=== PATIENT | female | born 1985 | race Caucasian/White ===

== ENCOUNTER 2017-10-20 12:37 | Inpatient (IN) | payer OTHER ==
[~2017-10-20] VITALS: Ht 157.5 cm; Wt 100.2 kg
[2017-10-20] MEDS ORDERED: SERT50TA PO (12:45)
[2017-10-20] MEDS ORDERED: TRAZ-213 PO (12:45)
[2017-10-20] MEDS ORDERED: SODIUM CHLORIDE 0.9% 1,000 ML IV ONE (13:19)
[2017-10-20 13:36] LABS: BASOPHILS % 0.5 % (0.0-2.0); EOSINOPHILS % 1.7 % (0.0-5.0); HEMATOCRIT. 38.2 % (36.0-48.0); HEMOGLOBIN. 12.7 g/dL (12.0-16.0); LYMPHOCYTES % 25.8 % (20.0-50.0); MEAN CORPUSCULAR HEMOGLOBIN 27.6 pg (28.0-32.0); MEAN CORPUSCULAR VOLUME 82.6 fL (81.0-99.0); MEAN PLATELET VOLUME 8.6 fl (7.4-10.4); MONOCYTES % 8.8 % (2.0-8.0); NEUTROPHILS % 63.2 % (40.0-76.0); PLATELET 250 x1000/uL (130-400); RED BLOOD CELL COUNT 4.62 mill/uL (4.2-5.4); RED CELL DISTRIBUTION WIDTH 14.7 % (11.6-14.6)
[2017-10-20 13:42] LABS: CHLORIDE 106 mEq/L (98-107)
[2017-10-20 13:44] LABS: INR 1.1; PARTIAL THROMBOPLASTIN TIME 26.4 sec (23.4-31.0); PROTHROMBIN TIME 10.7 sec (9.1-11.1)
[2017-10-20 13:46] LABS: ETHANOL BLOOD < 10 mg/dL
[2017-10-20 13:48] LABS: HCG SCREEN NEGATIVE
[2017-10-20] MEDS ORDERED: MAGNESIUM 2 G PREMIX 50 ML IV ONE (15:15)
[2017-10-20 15:34] LABS: BG BASE EXCESS -2.2 mmol/L (-2.0-2.0); BG CARBOXYHEMOGLOBIN 0.2 % (0.5-1.5); BG DEOXYHEMOGLOBIN 2.7 % (0.0-5.0); BG FRACTION INSPIRED OXYGEN 21; BG HCO3 ACT 23.1 mmol/L (22.0-26.0); BG METHEMOGLOBIN 0.3 % (0.0-1.5); BG OXYGEN SATURATION 97.3 % (92.0-98.5); BG OXYHEMOGLOBIN 96.8 % (94.0-97.0); BG PH 7.359 (7.350-7.450); BG PO2 97.9 mmHg (75.0-100.0); BG SAMPLE SITE LEFT BRACHIAL; BG TOTAL HEMOGLOBIN 12.9 g/dL (12.0-18.0); BG VENT MODE ROOM AIR
[2017-10-20] MEDS: SODIUM CHLORIDE 0.45% 1,000 ML IV SCH (15:44)
[2017-10-20] MEDS ORDERED: DOCUSATE SODIUM 100MG CAPSULE PO PRN (15:45)
[2017-10-20] MEDS ORDERED: GUAIFENESIN 200MG/10ML SUGAR FREE UDC PO PRN (15:45)
[2017-10-20] MEDS ORDERED: CLONIDINE 0.1MG TABLET PO PRN (15:45)
[2017-10-20] MEDS ORDERED: MAGNESIUM SULFATE 2 GM in DEXTROSE 5% WATER 50 ML IV NR (16:00)
[2017-10-20 16:50] LABS: CLARITY URINE CLOUDY (CLEAR); COLOR URINE YELLOW (YELLOW); KETONES URINE NEGATIVE (NEGATIVE); LEUKOCYTE ESTERASE URINE TRACE (NEGATIVE); NITRITE URINE NEGATIVE (NEGATIVE); OCCULT BLOOD URINE 2+ (NEGATIVE); PH URINE 6.5 (4.5-8.0); PROTEIN URINE NEGATIVE (NEGATIVE); SPECIFIC GRAVITY URINE 1.009 (1.005-1.030); UROBILINOGEN URINE 0.2 E.U./dL (0.2-1.0)
[2017-10-20 17:12] LABS: *AMPHETAMINES SCREEN URINE NEGATIVE (NEGATIVE)
[2017-10-20 17:13] LABS: *BARBITURATES SCREEN URINE NEGATIVE (NEGATIVE); *BENZODIAZEPINES SCREEN URINE NEGATIVE (NEGATIVE); *COCAINE SCREEN URINE NEGATIVE (NEGATIVE); METHADONE URINE SCREEN NEGATIVE (NEGATIVE)
[2017-10-20 17:14] LABS: CANNABINOID URINE SCREEN NEGATIVE (NEGATIVE); OPIATES URINE SCREEN NEGATIVE (NEGATIVE); PHENCYCLIDINE URINE SCREEN NEGATIVE (NEGATIVE)
[2017-10-20 20:45] VITALS: BP 106/58
[2017-10-20 21:00] VITALS: BP 97/56
[2017-10-20] MEDS ORDERED: ONDANSETRON 4MG ODT PO PRN (21:00)
[2017-10-20 22:00] VITALS: BP 98/58
[2017-10-21] VITALS (12 sets, daily range): BP systolic 90–129; BP diastolic 44–68
[2017-10-21] MEDS: SODIUM CHLORIDE 0.45% 1,000 ML IV SCH ×2 (05:07→18:51)
[2017-10-21 06:39] LABS: BASOPHILS % 0.4 % (0.0-2.0); EOSINOPHILS % 1.6 % (0.0-5.0); HEMATOCRIT. 35.7 % (36.0-48.0); HEMOGLOBIN. 11.7 g/dL (12.0-16.0); LYMPHOCYTES % 30.8 % (20.0-50.0); MEAN CORPUSCULAR HEMOGLOBIN 27.4 pg (28.0-32.0); MEAN CORPUSCULAR VOLUME 83.2 fL (81.0-99.0); MEAN PLATELET VOLUME 8.8 fl (7.4-10.4); MONOCYTES % 7.2 % (2.0-8.0); PLATELET 243 x1000/uL (130-400); RED BLOOD CELL COUNT 4.29 mill/uL (4.2-5.4); RED CELL DISTRIBUTION WIDTH 14.4 % (11.6-14.6)
[2017-10-21 06:49] LABS: CHLORIDE 109 mEq/L (98-107)
[2017-10-21 13:55] LABS: T4 FREE 0.85 ng/dL (0.76-1.46)
[2017-10-21 16:46] LABS: CREATINE KINASE 53 IU/L (26-192)
[2017-10-21 16:47] LABS: CREATINE KINASE MB FRACTION < 1.0 ng/mL (0.5-3.6)
[2017-10-21] MEDS ORDERED: IPRATROPIUM/ALBUTEROL 0.5-3(2.5)MG/3ML NEB HHN PRN (17:15)
[2017-10-21 23:50] LABS: CREATINE KINASE 49 IU/L (26-192)
[2017-10-21 23:52] LABS: CREATINE KINASE MB FRACTION < 1.0 ng/mL (0.5-3.6)
[2017-10-22] VITALS (12 sets, daily range): BP systolic 95–124; BP diastolic 40–63
[2017-10-22 07:02] LABS: CREATINE KINASE 50 IU/L (26-192)
[2017-10-22 07:07] LABS: CREATINE KINASE MB FRACTION < 1.0 ng/mL (0.5-3.6)
[2017-10-22] MEDS: SODIUM CHLORIDE 0.45% 1,000 ML IV SCH ×2 (07:26→21:28)
[2017-10-23] VITALS (9 sets, daily range): BP systolic 106–123; BP diastolic 51–73
[2017-10-23] MEDS: SODIUM CHLORIDE 0.45% 1,000 ML IV SCH (10:43)
== END 2017-10-23 18:25 | disposition home or self-care (01) | DRG 917 ==
LOC: ER 12:37 → 5EST 14:10 → EDBEDREQ 14:17 → EDBEDREQSVC 15:45 → EDBEDREQTM 15:45 → ENRESERV 15:47
PROVIDERS: ADMIT Hospitalist; ATTEND Hospitalist
DX: T43.212A Poisoning by selective serotonin and norepinephrine reuptake inhibitors, intentional self-harm, initial encounter (principal); G92 Toxic encephalopathy; R45.851 Suicidal ideations; D64.9 Anemia, unspecified; E78.5 Hyperlipidemia, unspecified; F32.9 Major depressive disorder, single episode, unspecified; F41.9 Anxiety disorder, unspecified; I45.81 Long QT syndrome; Y92.89 Other specified places as the place of occurrence of the external cause; Z79.899 Other long term (current) drug therapy
CPT/HCPCS: 36415; 36600; 71045; 80053; 80061; 80305; 80307; 80329; 81003; 82375; 82550; 82553; 82805; 83036; 83735; 83880; 84439; 84443; 84484; 84703; 85025; 85379; 85610; 85730; 93005; 93306; 93970; 96365; 99291; G0482; J3475; J7030; J7060

== ENCOUNTER 2024-04-02 15:07 | Emergency (ER) | payer MEDICAID, OTHER ==
[~2024-04-02] VITALS: Ht 157.5 cm; Wt 79.0 kg
[~2024-04-02 15:07] MED LIST: SERT50TA PO; TRAZ-252 PO
[2024-04-02 15:35] VITALS: O2SAT 97
[2024-04-02 16:32] LABS: BASOPHILS % 0.9 % (0.0-2.0); EOSINOPHILS % 1.3 % (0.0-5.0); HEMATOCRIT. 44.2 % (36.0-48.0); HEMOGLOBIN. 15.6 g/dL (12.0-16.0); LYMPHOCYTES % 31.6 % (20.0-50.0); MEAN CORPUSCULAR HEMOGLOBIN 31.4 pg (28.0-32.0); MEAN CORPUSCULAR HGB CONC 35.3 g/dL (31.0-37.0); MEAN CORPUSCULAR VOLUME 88.7 fL (81.0-99.0); MONOCYTES % 8.2 % (2.0-8.0); PLATELET 242 x1000/uL (130-400); RED BLOOD CELL COUNT 4.98 mill/uL (4.2-5.4); RED CELL DISTRIBUTION WIDTH 13.8 % (11.6-14.6); WHITE BLOOD COUNT 6.7 x1000/uL (4.5-11.0)
[2024-04-02 16:42] LABS: CHLORIDE 99 mEq/L (98-107); POTASSIUM 3.8 mEq/L (3.5-5.1); SODIUM 134 mEq/L (136-145)
[2024-04-02 16:43] LABS: CARBON DIOXIDE 21 mEq/L (21-32)
[2024-04-02 16:44] LABS: CALCIUM 9.2 mg/dL (8.7-10.4)
[2024-04-02 16:49] LABS: CREATININE 0.8 mg/dL (0.6-1.0); UREA NITROGEN BLOOD 8 mg/dL (9-23)
[2024-04-02 16:57] LABS: GLUCOSE 473 mg/dL (70-105)
[2024-04-02] MEDS: SODIUM CHLORIDE 0.9% 1,000 ML IV ONE ×2 (18:47)
[2024-04-02] MEDS ORDERED: METF-414 MT (20:47)
[2024-04-02] MEDS ORDERED: NPH,100I SQ ×2 (20:48→20:49)
[2024-04-02] MEDS ORDERED: ATOR20TA65 MT (20:50)
[2024-04-02 21:05] VITALS: BP 129/88; PULSE 89; RESP 18; TEMP 36.9; O2SAT 99
== END 2024-04-02 21:02 | disposition home or self-care (01) ==
LOC: ER 15:07
DX: E11.65 Type 2 diabetes mellitus with hyperglycemia (principal); Z79.4 Long term (current) use of insulin; Z79.84 Long term (current) use of oral hypoglycemic drugs; Z79.899 Other long term (current) drug therapy
CPT/HCPCS: 99283; 96360; 80048; 82962; 85025; 36415; J7030